=== PATIENT | female | born 1990 | race Caucasian/White ===

== ENCOUNTER → 2016-07-20 | Outpatient (CLI) | payer BC ==
[~2016-07-20] MED LIST: AMOXICILLIN 50500 MG PO; AMRIX15 MG PO; ATIVAN 0.50.5 MG/TAB PO; CLARITIN 1010 MG/TAB PO; CLINDAMYCIN150 MG PO; DOXYCYCLINE 10100 MG PO; EFFEXOR-XR150 MG PO; FLONASE NASAL S16 GM; GLUCOPHAGE500 MG/TAB PO; INDERAL60 MG PO; KLONOPIN 0.5MG0.5 MG PO; LAMICTAL 25MG T25 MG PO; LEVSIN 0.10.125 MG/T PO; LEXAPRO 10MG10 MG PO; MOTRIN 600600 MG/TAB PO; MOTRIN 800800 MG/TAB PO; NASONEX SPRAY17 GM NS; NEURONTIN300 MG/CAP PO; NORCO 325 MG-51 TAB PO; NORCO 325 MG-7.1 TAB PO; PROMETHAZINE V473 M2 PO; ULTRAM 50MG TAB50 MG PO; VITAMIN D 1001000 IU PO; VITAMIN D1000 IU PO; ZANAFLEX2 MG PO; ZOFRAN ODT4 MG PO; ZOLOFT 50MG50 MG PO; ZYRTEC ALLERGY10 MG PO
== END ==
LOC: MC.RAD 09:47
DX: Z12.31 Encounter for screening mammogram for malignant neoplasm of breast (principal)